=== PATIENT | female | born 1995 | race Caucasian/White ===

== ENCOUNTER 2016-08-02 23:35 | Inpatient (IN) | payer OTHER ==
[~2016-08-02] VITALS: Ht 157.5 cm; Wt 54.4 kg
[~2016-08-02 23:35] MED LIST: IBUP-974 PO
[2016-08-03] MEDS ORDERED: LACTATED RINGERS 1,000 ML IV SCH (01:13)
[2016-08-03] MEDS ORDERED: OXYTOCIN 10 UNITS/ML VIAL IM SCH (01:15)
[2016-08-03] MEDS ORDERED: AMPICILLIN 2,000 MG in NACL 0.9% MINI-BAG PLUS 100 ML IV SCH (01:15)
[2016-08-03] MEDS ORDERED: LACTATED RINGERS 500 ML IV SCH (01:15)
[2016-08-03] MEDS ORDERED: OXYTOCIN 20 UNITS/LR PREMIX 1,000 ML IV SCH (01:15)
[2016-08-03] MEDS ORDERED: MISOPROSTOL 25 MCG TAB VG SCH (01:20)
[2016-08-03 02:00] VITALS: BP 111/57
[2016-08-03 02:07] LABS: APPEARANCE,URINE CLEAR (CLEAR); BILIRUBIN,URINE NEGATIVE (NEGATIVE); BLOOD, URINE NEGATIVE (NEGATIVE); COLOR,URINE YELLOW (YELLOW); LEUKOCYTE ESTERASE ,URINE NEGATIVE (NEGATIVE); NITRITE, URINE NEGATIVE (NEGATIVE); PROTEIN,URINE NEGATIVE (NEGATIVE); UGLUCOSE NEGATIVE (NEGATIVE); UROBILINOGEN,URINE 0.2 EU/dL (0.2 - 1)
[2016-08-03 02:07] LABS: BASOPHILS # (AUTO) 0.1 K/uL (0.00-0.22); BASOPHILS % (AUTO) 0.6 % (0.0-2.0); EOSINOPHILS # (AUTO) 0.1 K/uL (0-0.4); HEMATOCRIT 36.3 % (36-48); HEMOGLOBIN 11.8 g/dL (12.0-16.0); LYMPHOCYTES # (AUTO) 1.7 K/uL (2.5-16.5); LYMPHOCYTES % (AUTO) 17.2 % (20.5-51.1); MEAN CORPUSCULAR HEMOGLOBIN 28 pg (27-31); MEAN CORPUSCULAR HGB CONC 33 g/dL (33-37); MEAN CORPUSCULAR VOLUME 86 fL (80-94); MONOCYTES # (AUTO) 0.6 K/uL (0.8-1.0); NEUTROPHILS # (AUTO) 7.4 K/uL (1.8-7.7); PLATELET COUNT (AUTO) 178 K/uL (140-450); RED BLOOD CELL COUNT(AUTO) 4.22 MIL/uL (4.20-5.40); RED CELL DISTRIBUTION WIDTH 13.2 % (11.6-13.7); WHITE BLOOD COUNT (AUTO) 9.9 K/uL (4.8-10.8)
[2016-08-03] MEDS ORDERED: AMPICILLIN 2,000 MG VIAL ONE (02:16)
[2016-08-03 02:20] LABS: BACTERIA,URINE OCCASSIONAL /HPF (None Seen); RBC,URINE 0-5 (RARE) /HPF (0-5); WBC,URINE 0-5 (RARE) /HPF (0-5)
[2016-08-03] MEDS ORDERED: MISOPROSTOL 25 MCG TAB ONE (02:27)
[2016-08-03 02:30] LABS: NEUTROPHILS % (AUTO) 75.2 % (42.2-75.2)
[2016-08-03] MEDS ORDERED: BUPIVACAINE 0.125%/NS PREMIX 250 ML ONE (03:44)
[2016-08-03] MEDS ORDERED: AMPICILLIN 1,000 MG in NACL 0.9% MINI-BAG PLUS 50 ML IV SCH (04:00)
[2016-08-03] MEDS ORDERED: AMPICILLIN 1,000 MG VIAL ONE (06:34)
[2016-08-03] MEDS ORDERED: INFLUENZA VIRUS VACCINE QUAD 0.5 ML SYR IMVAC SCH (07:25)
[2016-08-03] MEDS ORDERED: PREN-546 PO (07:45)
[2016-08-03] MEDS ORDERED: OXYTOCIN 10 UNITS/ML VIAL ONE (08:56)
[2016-08-03] MEDS ORDERED: OXYTOCIN 20 UNITS/LR PREMIX 1,000 ML IV ONE (08:57)
[2016-08-03] MEDS ORDERED: PROMETHAZINE 25 MG/ML VIAL ONE (10:28)
[2016-08-03] MEDS ORDERED: NALBUPHINE HYDROCHLORIDE 10 MG/ML VIAL ONE (10:28)
[2016-08-03] MEDS ORDERED: BENZOCAINE/MENTHOL 20%-0.5% 60 GM CAN TP PRN (13:15)
[2016-08-03] MEDS ORDERED: oxyCODONE/APAP 5/325 MG 1 TAB TAB PO PRN (13:15)
[2016-08-03] MEDS ORDERED: MEASLES, MUMPS, AND RUBELLA 1 VIAL SQVAC PRN (13:15)
[2016-08-03] MEDS ORDERED: TEMAZEPAM 15 MG CAP PO PRN (13:15)
[2016-08-03] MEDS ORDERED: IBUPROFEN 800 MG TAB PO PRN (13:15)
[2016-08-03] MEDS ORDERED: METHYLERGONOVINE 0.2 MG/ML AMP IM PRN (13:15)
[2016-08-03] MEDS ORDERED: WITCH HAZEL 40 PAD PACKAGE TP PRN (13:15)
[2016-08-03] MEDS ORDERED: DOCUSATE SOD/SENNA 50/8.6 MG 1 TAB PO SCH (21:00)
[2016-08-03] MEDS: HYDROcodone/APAP 5/325 MG 1 TAB TAB PO PRN (21:03)
[2016-08-04] MEDS: HYDROcodone/APAP 5/325 MG 1 TAB TAB PO PRN ×3 (03:27→23:41)
[2016-08-04 06:14] LABS: HEMATOCRIT 34.5 % (36-48); HEMOGLOBIN 11.3 g/dL (12.0-16.0)
--- NOTE | 2016-08-04 09:13 | NUR ---
PATIENT HAS BEEN SCREENED AND CATEGORIZED LOW NUTRITION RISK. PATIENT WILL BE SEEN WITHIN 7 DAYS OF ADMISSION. 08/09/[address]
[2016-08-05] MEDS: HYDROcodone/APAP 5/325 MG 1 TAB TAB PO PRN (07:52)
[2016-08-05] MEDS ORDERED: IBUP-1842 PO (11:43)
== END 2016-08-05 17:00 | disposition home or self-care (01) | DRG 560 ==
LOC: MLD 23:35 → MFCC 08-03 16:48
PROVIDERS: ADMIT Obstetrics & Gynecology; ATTEND Obstetrics & Gynecology
PROC: 10E0XZZ Delivery of Products of Conception, External Approach (ICD-10-PCS; principal; 2016-08-03)
PROC: 10907ZC Drainage of Amniotic Fluid, Therapeutic from Products of Conception, Via Natural or Artificial Opening (ICD-10-PCS; 2016-08-03)
PROC: 0W8NXZZ Division of Female Perineum, External Approach (ICD-10-PCS; 2016-08-03)
PROC: 3E0P7GC Introduction of Other Therapeutic Substance into Female Reproductive, Via Natural or Artificial Opening (ICD-10-PCS; 2016-08-03)
PROC: 00HU33Z Insertion of Infusion Device into Spinal Canal, Percutaneous Approach (ICD-10-PCS; 2016-08-03)
PROC: 3E0R3CZ (ICD-10-PCS; 2016-08-03)
DX: O70.9 Perineal laceration during delivery, unspecified (principal); O99.824 Streptococcus B carrier state complicating childbirth; Z37.0 Single live birth; Z3A.39 39 weeks gestation of pregnancy; Z28.21 Immunization not carried out because of patient refusal
CPT/HCPCS: 36415; 51702; 59200; 59409; 81001; 85018; 85025; 86592; 86886; 86900; 86901; J0290; J2300; J2550; J2590; J3490; J7120